=== PATIENT | female | born 1945 | race American Indian/Alaskan Native ===

== ENCOUNTER 2017-11-14 08:35 | Emergency (ER) | payer MEDICARE, OTHER ==
[2017-11-14] MEDS ORDERED: ZOFRAN IV ONE (11:56)
[2017-11-14] MEDS ORDERED: NACL 0.9% 1000 ML 1,000 ML IV ONE (11:56)
--- NOTE | 2017-11-14 11:59 | Emergency Department Report ---
Blank Doc - Documentation Documentation: 9 years old female history of hypertension, presented via EMS with acute onset of nausea and vomiting and feeling generalized weakness. Patient stated that she's been having runny nose cough and congestion and low-grade fever for the last 7 days. She reported that several of her coworker had the same symptoms. Patient denied any chest pain or shortness of breath. She stated that she's been having cough, productive with greenish sputum. Patient denied any abdominal pain or diarrhea. Given her current presentation patient when needed blood work, x-ray to rule out pneumonia. I order 1 L of normal saline and 4 mg Zofran.
[2017-11-14 12:38] LABS: Basophils % (Auto) 0.8 % (0.0-1.8); Eosinophils % (Auto) 0.1 % (0.0-4.3); Hematocrit 41.4 % (30.3-42.9); Hemoglobin 13.9 gm/dl (10.1-14.3); Lymphocytes # (Auto) 1.3 K/mm3 (1.2-5.4); Lymphocytes % (Auto) 32.3 % (13.4-35.0); Mean Corpuscular HGB Conc 34 % (30-34); Mean Corpuscular Hemoglobin 31 pg (28-32); Mean Corpuscular Volume 93 fl (79-97); Monocytes # (Auto) 0.5 K/mm3 (0.0-0.8); Monocytes % (Auto) 11.3 % (0.0-7.3); Platelet Count 162 K/mm3 (140-440); Red Blood Count 4.47 M/mm3 (3.65-5.03); Red Cell Distribution Width 13.3 % (13.2-15.2)
[2017-11-14 12:44] LABS: Alanine Aminotransferase 24 units/L (7-56); Albumin 4.5 g/dL (3.9-5); BUN/Creatinine Ratio 12; Blood Urea Nitrogen 11 mg/dL (7-17); Calcium 9.4 mg/dL (8.4-10.2); Hemolysis Index 8; Lipase 24 units/L (13-60)
[2017-11-14 14:11] LABS: Bilirubin,Urine NEG (Negative); Blood,Urine NEG (Negative); Calcium Oxalate Crystals,Urine FEW; Color,Urine Yellow (Yellow); Hyaline Casts,Urine 7 /LPF; Mucus,Urine FEW /HPF; Nitrite,Urine NEG (Negative); Protein,Urine <15 mg/dL mg/dL (Negative); Urobilinogen,Urine < 2.0 mg/dL (<2.0)
--- NOTE | 2017-11-14 14:32 | XRay Report ---
AP CHEST: HISTORY: Cough, fever AP view of the chest demonstrates a normal mediastinal and cardiac contour with clear lungs and normal bony and soft tissue structures. IMPRESSION: Unremarkable AP chest.
[2017-11-14 14:40] VITALS: BP 127/77
--- NOTE | 2017-11-14 14:59 | Emergency Department Report ---
HPI - General Chief Complaint: Nausea/Vomiting/Diarrhea Time Seen by Provider: 11/14/17 11:50 - HPI HPI: 72-year-old -[place] female history of hypertension comes in for cough nausea vomiting and generalized malaise. Patient reports that she has a cough with greenish sputum. This has all been going on for about 2 weeks. Patient admits to low-grade fever no chest pain no shortness of breath. ED Past Medical Hx - Past Medical History Previous Medical History?: Yes Hx Hypertension: Yes - Surgical History Past Surgical History?: No - Social History Smoking Status: Never Smoker Substance Use Type: None - Medications Home Medications: Home Medications Medication Instructions Recorded Confirmed Last Taken Type Aspirin [Baby Aspirin] 81 mg PO QDAY 09/01/13 08/31/13 History Penicillin Vk [Veetids TAB] 500 mg PO QID #40 tablet 09/01/13 Unknown Rx amLODIPine [Norvasc] 10 mg PO DAILY 09/01/13 09/01/13 08/31/13 History ED Review of Systems ROS: Stated complaint: NAUSEA/COUGH/COLD Other details as noted in HPI Physical Exam - Physical Exam Vital Signs: Vital Signs 11/14/17 11/14/17 08:50 14:39 Temperature 99.6 F 98.6 F Pulse Rate 90 81 Respiratory 16 16 Rate Blood Pressure 131/90 Blood Pressure 127/77 [Left] O2 Sat by Pulse 100 100 Oximetry Physical Exam: GENERAL: Alert and oriented x3, no apparent distress, Normal Gait, atraumatic. HEAD: Head is normocephalic and a-traumatic. EYES: Extra ocular muscles are intact. Pupils are equal, round, and reactive to light and accommodation. EARS: symetrical, atraumatic, non tender, ear canal clear and moderate cerumen, tympanic membrance non inflamed. gross auditory nml bilaterally. NOSE: Nose symetrical, Nontender,Nares appeared normal. MOUTH:Mouth is well hydrated and without lesions. Tonsils nonerythematous or swollen, Uvula midline, Tongue not elevated. Mucous membranes are moist. Posterior pharynx clear, no exudate or lesions. Patent airways. NECK: Supple. Non edematous, No carotid bruits. No lymphadenopathy or thyromegaly. LUNGS: Symetrical with respiration, No wheezing, no rales or crackles, CTAB. HEART: S1, S2 present, regular rate and rhythm without murmur, no rubs, no gallops. ABDOMEN: No organomegaly was noted,Positive bowel sounds, soft, and non- distended. . Nontender to palpation on all Quadrants,. NEUROLOGIC: No focal Deficit, Cranial nerves II through XII are grossly intact. No loss of sensation, No facial droop, PSYCHIATRIC: Mood is congruent with affect, denies suicidal or homicidal ideations. SKIN: Warm and dry, No lesions, No ulceration or induration present ED Course Vital Signs 11/14/17 11/14/17 08:50 14:39 Temperature 99.6 F 98.6 F Pulse Rate 90 81 Respiratory 16 16 Rate Blood Pressure 131/90 Blood Pressure 127/77 [Left] O2 Sat by Pulse 100 100 Oximetry ED Medical Decision Making - Lab Data Result diagrams: 11/14/17 12:13 11/14/17 12:13 - Medical Decision Making Patient has been evaluated by this provider fast track as well as Dr. Zuniga. Patient chest x-ray was unremarkable she's had a liter of fluid which she feels much better. Discussed with patient would discharge her on a light diet and to advance as tolerated. Discussed with patient she is to follow up with her primary care provider if symptoms reappear Patient verbalized understanding. Critical care attestation.: If time is entered above; I have spent that time in minutes in the direct care of this critically ill patient, excluding procedure time. ED Disposition Clinical Impression: Nausea and vomiting in adult patient Disposition: DC-01 TO HOME OR SELFCARE Is pt being admited?: No Does the pt Need Aspirin: No Condition: Stable Instructions: Viral Syndrome (ED) Additional Instructions: Continue with fluids if symptoms persist or gets worse follow back with the ER. Referrals: DAVID WILLOUGHBY MD [Primary Care Provider] - 3-5 Days Forms: Work/School Release Form(ED)
== END 2017-11-14 15:27 | disposition home or self-care (01) ==
LOC: ED 08:35
DX: R11.2 Nausea with vomiting, unspecified (principal); I10 Essential (primary) hypertension; Z79.82 Long term (current) use of aspirin; Z88.0 Allergy status to penicillin; Z88.2 Allergy status to sulfonamides
CPT/HCPCS: 36415; 71045; 80053; 81001; 83690; 85025; 96361; 96374; 99284; J2405; J7030